=== PATIENT | female | born 1995 | race Asian ===

== ENCOUNTER 2017-01-27 20:52 | Emergency (ER) | payer BC ==
[2017-01-27 20:58] VITALS: BP 106/69; PULSE 91; TEMP 37.1; O2SAT 96; Ht 144.8 cm
--- NOTE | 2017-01-27 21:32 | DIAGNOSTIC IMAGING REPORT ---
LEFT ANKLE MIN 3 VIEWS ROUTINE CLINICAL HISTORY: L ankle pain trauma COMPARISON: None. DISCUSSION: Transverse fracture distal fibula. Alignment is anatomic. No evidence of dislocation. Lateral periumbilical soft tissue edema. IMPRESSION: Transverse nondisplaced fracture distal fibula. Soft tissue edema. The above report was generated using voice recognition software. It may contain grammatical, syntax or spelling errors. Electronically signed by: Sammy Comer M.D. 01/27/2017 9:30 PM Dictated Date/Time: 01/27/2017 9:30 PM
[2017-01-27] MEDS ORDERED: OXYCODONE HCL IR 5 MG TAB (IMMEDIATE RELEASE) PO STA (21:48)
[2017-01-27] MEDS ORDERED: OXYC1TAB3 PO (21:55)
[2017-01-27] MEDS ORDERED: OXYCODONE IR HOME PACK PO ONE (22:00)
--- NOTE | 2017-01-28 00:32 | EMERGENCY ROOM VISIT NOTE ---
History First contact with patient: 21:02 Chief Complaint: ANKLE PAIN Stated Complaint: LEFT ANKLE PAIN History of Present Illness The patient is a 21 year old female who presents to the Emergency Room with complaints of a left ankle injury while jumping on a trampoline tonight. Reports swelling and pain of the ankle, rating her discomfort a 10 out of 10. She denies any pain extending into the leg or knee. She denies any other injury from this incident. The patient is here with her friend who interprets for her. The patient and friend refused interpretation services. Review of Systems Review of systems was limited secondary to language barrier Past Medical/Surgical History Medical Problems: (1) No significant past medical history Surgical Problems: (1) No history of previous surgery Family History Unremarkable Social History Smoking Status: Never Smoker Smokeless Tobacco Use: No Alcohol Use: none Drug Use: none Marital Status: single Occupation Status: employed Current/Historical Medications Scheduled PRN Oxycodone Ir (Roxicodone Ir), 1 TAB PO Q4-6h PRN for Pain Physical Exam Vital Signs Date Time Temp Pulse Resp B/P (MAP) Pulse Ox O2 Delivery O2 Flow Rate FiO2 01/27/17 20:58 37.1 91 20 106/69 96 Room Air Physical Exam CONSTITUTIONAL: Healthy and well nourished. Patient appears in moderate discomfort from pain. HEENT: Normocephalic, atraumatic. Pupils equal, round and reactive. NECK: Full active range of motion without discomfort. RESPIRATORY: Clear to auscultation bilaterally with no wheezing, crackles, rhonchi or stridor. CARDIOVASCULAR: Regular rate and rhythm with no murmurs, rubs or gallops. MUSCULOSKELETAL: Examination shows diffuse edema over the left lateral ankle region. No open wounds noted. The patient has no tenderness to palpation of the proximal fibula or knee. No tenderness to palpation over the dorsal midfoot or calcaneus or Achilles tendon. Pedal pulses are intact. INTEGUMENTARY: No rash or other significant dermatologic conditions noted. NEUROLOGIC: No focal neurologic deficits noted. Left foot and toes are sensory intact. Medical Decision & Procedures ER Provider Diagnostic Interpretation: My interpretation of left ankle x-rays confirms a nondisplaced transverse fracture of the distal fibula. Ankle mortise is symmetric, and there is no dislocation. Radiologist report is as follows: LEFT ANKLE MIN 3 VIEWS ROUTINE CLINICAL HISTORY: L ankle pain trauma COMPARISON: None. DISCUSSION: Transverse fracture distal fibula. Alignment is anatomic. No evidence of dislocation. Lateral periumbilical soft tissue edema. IMPRESSION: Transverse nondisplaced fracture distal fibula. Soft tissue edema. Medications Administered Medications (Trade) Dose Ordered Sig/Chloe Route Start Time Stop Time Status Last Admin Dose Admin Oxycodone HCl (Roxicodone Immediate Rel Tab) 5 mg NOW STAT PO 01/27/17 21:48 01/27/17 21:51 DC 01/27/17 21:58 5 MG Oxycodone HCl (Roxicodone Immediate Rel 5MG Home Pack) 1 homepack UD ONCE PO 01/27/17 22:00 01/27/17 22:01 DC 01/27/17 21:58 1 HOMEPACK ED Course Patient history and physical exam were performed. Nurse's notes were reviewed. The patient was administered OxyIR 5 mg for pain. X-rays of the left ankle confirms a nondisplaced and transverse fracture of the distal fibula. A posterior Ortho-Glass splint and crutches were applied. Neurovascular check after splint placement was normal. The patient was provided contact information for [facility] for further reevaluation and management. She was encouraged to ice and elevate the ankle for swelling and pain. Ibuprofen and Tylenol in alternating fashion for baseline pain relief. The patient was provided a home pack and prescription for OxyIR as needed for breakthrough pain. The patient and friend voiced understanding of all discharge instructions, and the patient rated her pain a 5 out of 10 at the conclusion of my exam. Medical Decision [place] Drug Monitoring Program Search Results: patient reviewed within database, no issues identified Medication Reconcilliation Current Medication List: was personally reviewed by co Blood Pressure Screening Patient's blood pressure: Normal blood pressure Impression Primary Impression: Fracture of distal end of left fibula Additional Impression: Fall involving trampoline as cause of accidental injury Departure Information Prescriptions Oxycodone Ir (Roxicodone Ir) 5 Mg Tab 1 TAB PO Q4-6h Y for Pain, #15 TAB For Initial Treatment Prov: Pedrito Urrutia PA 01/27/17 Referrals No Doctor, Assigned (PCP) Patient Instructions My [facility] Problem Qualifiers Primary Impression: Fracture of distal end of left fibula Encounter type: initial encounter Fracture type: closed Fracture morphology : other fracture Qualified Codes: S82.832A - Other fracture of upper and lower end of left fibula, initial encounter for closed fracture
== END 2017-01-27 21:16 | disposition home or self-care (01) ==
LOC: C.EDB 20:58 → C.EDD 21:16
DX: S82.425A Nondisplaced transverse fracture of shaft of left fibula, initial encounter for closed fracture (principal); W17.89XA Other fall from one level to another, initial encounter; Y93.39 Activity, other involving climbing, rappelling and jumping off

== ENCOUNTER → 2017-02-13 | Outpatient (CLI) | payer BC ==
[~2017-02-13] MED LIST: OXYC1TAB3 PO
--- NOTE | 2017-02-13 08:16 | DIAGNOSTIC IMAGING REPORT ---
L ANKLE MIN 3 VIEWS HISTORY: 21 years-old Female LEFT ANKLE FX follow-up exam of distal fibular fracture. COMPARISON: Left ankle radiographs 01/27/2017 TECHNIQUE: 3 views of left ankle. FINDINGS: There has been mild healing of the transverse nondisplaced distal fibular fracture with lucent fracture line again seen laterally. No associated angulation. There is decreased amount of soft tissue swelling. No additional acute fracture or dislocation. No opaque foreign body. IMPRESSION: Mild healing of the transverse nondisplaced distal fibular fracture with decreased soft tissue swelling. The above report was generated using voice recognition software. It may contain grammatical, syntax or spelling errors. Electronically signed by: Ronaldo De La Rosa M.D. 02/13/2017 8:14 AM Dictated Date/Time: 02/13/2017 8:12 AM
== END | disposition home or self-care (01) ==
LOC: C.RDSM 10:22
PROVIDERS: ATTEND Family Medicine
DX: S82.832D Other fracture of upper and lower end of left fibula, subsequent encounter for closed fracture with routine healing (principal); X58.XXXD Exposure to other specified factors, subsequent encounter

== ENCOUNTER → 2017-03-01 | Outpatient (CLI) | payer BC ==
--- NOTE | 2017-03-01 09:52 | DIAGNOSTIC IMAGING REPORT ---
LEFT ANKLE 3 VIEWS CLINICAL HISTORY: Left ankle fracture follow-up. FINDINGS: 3 views of the left ankle are compared to study dated 02/13/2017. There is mild disuse osteopenia. Again seen is a nondistracted and nonunited fracture through the lateral malleolus. There is minimal sclerosis along the margin of the fracture. No new fracture is identified. Ankle mortise is intact. Overlying soft tissue edema has resolved. No joint effusion is identified. IMPRESSION: Disuse osteopenia with no significant change in the appearance of a left fibular fracture as compared 01/27/2017. Electronically signed by: Darek Barber M.D. 03/01/2017 9:51 AM Dictated Date/Time: 03/01/2017 9:48 AM
== END | disposition home or self-care (01) ==
LOC: C.RDSM 13:57
PROVIDERS: ATTEND Family Medicine
DX: M85.872 Other specified disorders of bone density and structure, left ankle and foot (principal); Z87.81 Personal history of (healed) traumatic fracture

== ENCOUNTER → 2017-04-23 | Outpatient (CLI) | payer BC ==
--- NOTE | 2017-04-23 10:27 | DIAGNOSTIC IMAGING REPORT ---
L ANKLE MIN 3 VIEWS CLINICAL HISTORY: LEFT ANKLE FX trauma COMPARISON: 03/22/2017 DISCUSSION: Unchanging transverse fracture distal fibula. No significant interval healing. Possible developing partial nonunion must be considered. IMPRESSION: 1. Transverse fracture distal fibula showing no significant healing from the prior study. 2. Possibility of a developing nonunion or delayed union must be considered. 3. Alignment remains anatomic. The above report was generated using voice recognition software. It may contain grammatical, syntax or spelling errors. Electronically signed by: Sammy Comer M.D. 04/23/2017 10:26 AM Dictated Date/Time: 04/23/2017 10:25 AM
== END | disposition home or self-care (01) ==
LOC: C.RDSM 10:17
PROVIDERS: ATTEND Family Medicine
DX: S82.62XA Displaced fracture of lateral malleolus of left fibula, initial encounter for closed fracture (principal); X58.XXXA Exposure to other specified factors, initial encounter

== ENCOUNTER → 2017-06-05 | Outpatient (CLI) | payer BC ==
--- NOTE | 2017-06-05 08:45 | DIAGNOSTIC IMAGING REPORT ---
L ANKLE MIN 3 VIEWS HISTORY: 22 years-old Female LEFT ANKLE FX follow-up study to assess fracture of the distal fibula COMPARISON: Left ankle radiographs 04/23/2017, 03/22/2017, 03/01/2017 and 02/13/2017, 01/27/2017 TECHNIQUE: 3 views of the left ankle FINDINGS: There is slightly increased sclerosis involving the nondisplaced transverse fracture of the lateral malleolus distal fibula which is noted 8 mm distal to the talar dome. Minimal associated soft tissue swelling. Disuse osteopenia redemonstrated. No osteochondral defect, acute fracture or subluxation. IMPRESSION: 1. Unchanged alignment of the transverse fracture of the distal fibula with slightly increased sclerosis from prior study. Overall healing of the fracture again is less than expected considering initial radiographs were on 01/27/2017. Follow-up recommended to assess for delayed union or nonunion. 2. Disuse osteopenia. The above report was generated using voice recognition software. It may contain grammatical, syntax or spelling errors. Electronically signed by: Ronaldo De La Rosa M.D. 06/05/2017 8:43 AM Dictated Date/Time: 06/05/2017 8:39 AM
== END | disposition home or self-care (01) ==
LOC: C.RDSM 16:08
PROVIDERS: ATTEND Family Medicine
DX: S82.832G Other fracture of upper and lower end of left fibula, subsequent encounter for closed fracture with delayed healing (principal); M85.872 Other specified disorders of bone density and structure, left ankle and foot; X58.XXXD Exposure to other specified factors, subsequent encounter

== ENCOUNTER → 2017-08-03 | Outpatient (CLI) | payer BC ==
--- NOTE | 2017-08-03 10:27 | DIAGNOSTIC IMAGING REPORT ---
L ANKLE MIN 3 VIEWS CLINICAL HISTORY: 22 years-old Female presenting with LEFT ANKLE FRACTURE. TECHNIQUE: Frontal, mortise, and lateral views of the left ankle were obtained. COMPARISON: 06/05/2017. FINDINGS: Ankle mortise intact. Redemonstration of the transversely oriented fracture of the distal fibular metaphysis below the level of the ankle mortise. Fracture margins are smooth and sclerotic. No change in alignment. No evidence of osseous bridging. No new osseous abnormality. Osteopenia suggested. Soft tissues radiographically normal. 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 No change in alignment. Electronically signed by: Mac Turcios M.D. 08/03/2017 10:26 AM Dictated Date/Time: 08/03/2017 10:24 AM
== END | disposition home or self-care (01) ==
LOC: C.RDSM 15:47
PROVIDERS: ATTEND Family Medicine
DX: S82.892A Other fracture of left lower leg, initial encounter for closed fracture (principal); X58.XXXA Exposure to other specified factors, initial encounter